=== PATIENT | female | born 1925 | race Caucasian/White ===

== ENCOUNTER 2017-03-03 15:48 | Emergency (ER) | payer OTHER ==
[2017-03-03 16:10] VITALS: BP 151/70; PULSE 89; TEMP 98; BMI 25.2
[2017-03-03] MEDS ORDERED: DIPHTH,PERTUSS(ACELL),TET 0.5 ML DISP.SYRIN IM ONE (16:46)
--- NOTE | 2017-03-03 16:46 | PDOC ---
History of Present Illness - General Chief Complaint: Injury Stated Complaint: FELL Time Seen by Provider: 03/03/17 16:21 Past History - Past Medical History Allergies/Adverse Reactions: Allergies Allergy/AdvReac Type Severity Reaction Status Date / Time aspirin Allergy Unknown Verified 03/03/17 16:11 codeine Allergy Unknown Verified 03/03/17 16:11 Penicillins Allergy Unknown Verified 03/03/17 16:11 Sulfa (Sulfonamide Allergy Unknown Verified 03/03/17 16:11 Antibiotics) Home Medications: Ambulatory Orders Acetaminophen 650 mg PO TID PRN 03/03/17 Amlodipine Besylate [Norvasc -] 5 mg PO DAILY 03/03/17 Benazepril HCl [Lotensin] 40 mg PO DAILY 03/03/17 Cholecalciferol (Vitamin D3) [Vitamin D3 -] 1,000 unit PO DAILY 03/03/17 Docusate Sodium [Colace] 100 mg PO DAILY PRN 03/03/17 Duloxetine HCl [Cymbalta -] 60 mg PO DAILY 03/03/17 Lidocaine 2% Viscous Oral [Xylocaine 2% Viscous Oral -] 15 ml PO Q4H PRN Multivitamins [Tab-A-Vit -] 1 tab PO DAILY 03/03/17 [place]-3S/Dha/Epa/Fish Oil [Fish Oil Dr 1,000 mg Softgel] 1 each PO BID 03/03/17 Propylene Glycol/Peg 400/Pf [Systane 0.3-0.4% Eye Drops] 1 each OP BID 03/03/17 Timolol 0.5% [Timoptic 0.5%] 1 drop OU BID 03/03/17 Cardiac Disorders: Yes (AORTIC VALVE STENOSIS) COPD: No Dementia: Yes HTN: Yes Hypercholesterolemia: Yes Psychiatric Problems: Yes - Suicide/Smoking/Psychosocial Hx Smoking History: Unknown if ever smoked Have you smoked in the past 12 months: No Information on smoking cessation initiated: No Hx Alcohol Use: No Drug/Substance Use Hx: No Substance Use Type: None *Physical Exam - Vital Signs Last Vital Signs Temp Pulse Resp BP Pulse Ox 98.0 F 89 16 151/70 95 03/03/17 15:55 03/03/17 15:55 03/03/17 15:55 03/03/17 15:55 03/03/17 15:55 Medical Decision Making - Medical Decision Making 03/03/17 17:09 Patient who tripped over a curb, striking her forehead and left cheek on the ground. No loss of consciousness. She is alert and complaining of mild pain in the left forehead. No other complaints. No other injuries including injuries to the head neck chest abdomen spine pelvis or extremities Physical exam: Alert no acute distress cooperative Afebrile, vital signs stable Head atraumatic. PERRLA 4 mm, fundi benign with sharp disc margins and good central venous pulsations Contusions and abrasions over the left forehead and left cheek. Minimal orbital and facial bone tenderness, no deformity. EOMs full without diplopia. Visual pérez intact. Conjunctivae and corneas clear. ENT clear Neck supple without bruit mass or nodes. No tenderness or deformity. Good range of motion without pain Chest clear, full breath sounds throughout bilaterally, no rib cage or chest wall tenderness or deformity CV regular without murmur rub or gallop Abdomen benign Spine and pelvis without tenderness or deformity Extremities without visible or palpable sign of trauma, full range of motion of the shoulders and hips without pain or limitation. Impression: Facial contusions, no sign of significant head injury or facial fracture Plan: Wounds cleaned and dressed. Continue ice. Wound care and head injury instructions. Recheck 24 hours primary physician. Return to ER if there are further symptoms. Fully ambulatory and in no significant pain or other distress upon discharge to her nursing facility to follow-up as suggested. *DC/Admit/Observation/Transfer Diagnosis at time of Disposition: Contusion of face Qualifiers: Encounter type: initial encounter Qualified Code(s): S00.83XA - Contusion of other part of head, initial encounter - Discharge Dispostion Disposition: HOME Condition at time of disposition: Stable Admit: No - Referrals Referrals: Tono Talamantes [Primary Care Provider] - 24 hours - Patient Instructions Printed Discharge Instructions: Contusion, DI for Closed Head Injury - Post Discharge Activity
== END 2017-03-03 18:55 | disposition home or self-care (01) ==
LOC: FER 15:48
PROC: 3E0234Z Introduction of Serum, Toxoid and Vaccine into Muscle, Percutaneous Approach (ICD-10-PCS; principal; 2017-03-03)
DX: S00.83XA Contusion of other part of head, initial encounter (principal); W18.39XA Other fall on same level, initial encounter; Y93.89 Activity, other specified; Y92.410 Unspecified street and highway as the place of occurrence of the external cause; F03.90 Unspecified dementia, unspecified severity, without behavioral disturbance, psychotic disturbance, mood disturbance, and anxiety; I10 Essential (primary) hypertension; E78.00 Pure hypercholesterolemia, unspecified; F99 Mental disorder, not otherwise specified
CPT/HCPCS: 90715; 99283-25

== ENCOUNTER 2017-08-27 16:53 | Observation (INO) | payer OTHER ==
--- NOTE | 2017-08-27 17:43 | PDOC ---
History of Present Illness - General Chief Complaint: Blood Pressure Problem Stated Complaint: Blood Pressure Problem Time Seen by Provider: 08/27/17 17:43 - History of Present Illness Initial Comments: 89 year old female presenting from [facility] with PMH of sinus bradycardia ( pacemaker considered but deferred), PVD, HLD, MDD, Aortic Valve Stenosis, and HTN presenting with SOB on exertion and lightheadedness for the past three days with elevated BP today. Patient states that she has been lightheaded while walking for the past three days. Today at her [place] her pressures were elevated to the 180s. Denies nausea, vomiting, diarrhea, constipation, fevers, chills, focal neuro deficit, ataxia, cough, chest pain, headache, or other symptoms. 08/27/17 19:45 Past History - Past Medical History Allergies/Adverse Reactions: Allergies Allergy/AdvReac Type Severity Reaction Status Date / Time aspirin Allergy Unknown Verified 08/27/17 17:42 codeine Allergy Unknown Verified 08/27/17 17:42 Penicillins Allergy Unknown Verified 08/27/17 17:42 Sulfa (Sulfonamide Allergy Unknown Verified 08/27/17 17:42 Antibiotics) Home Medications: Ambulatory Orders Acetaminophen 650 mg PO TID PRN 03/03/17 Amlodipine Besylate [Norvasc -] 5 mg PO DAILY 03/03/17 Benazepril HCl [Lotensin] 40 mg PO DAILY 03/03/17 Cholecalciferol (Vitamin D3) [Vitamin D3 -] 1,000 unit PO DAILY 03/03/17 Docusate Sodium [Colace] 100 mg PO DAILY PRN 03/03/17 Duloxetine HCl [Cymbalta -] 60 mg PO DAILY 03/03/17 Lidocaine 2% Viscous Oral [Xylocaine 2% Viscous Oral -] 15 ml PO Q4H PRN Multivitamins [Multivit (RH Formulary)] 1 tab PO DAILY 03/03/17 [place]-3S/Dha/Epa/Fish Oil [Fish Oil Dr 1,000 mg Softgel] 1 each PO BID 03/03/17 Propylene Glycol/Peg 400/Pf [Systane 0.3-0.4% Eye Drops] 1 each OP BID 03/03/17 Timolol 0.5% [Timoptic 0.5%] 1 drop OU BID 03/03/17 Nitrofurantoin Macrocrystal [Macrodantin -] 50 mg PO Q6HPO #28 capsule MDD 4 Cardiac Disorders: Yes (AORTIC VALVE STENOSIS,BRADYCARDIA) COPD: No Dementia: Yes HTN: Yes Hypercholesterolemia: Yes Psychiatric Problems: Yes (DEMENTIA,MDD) Other medical history: PVD,OSTEPOROSIS - Suicide/Smoking/Psychosocial Hx Smoking History: Former smoker Have you smoked in the past 12 months: No If you are a former smoker, when did you quit?: 50 YEARS AGO Information on smoking cessation initiated: No Hx Alcohol Use: No Drug/Substance Use Hx: No Substance Use Type: None Review of Systems - Review of Systems Constitutional: No: Chills, Diaphoresis, Fever, Loss of Appetite HEENTM: No: Blurred Vision, Tearing Respiratory: Yes: Shortness of Breath, SOB with Exertion. No: Cough, Orthopnea Cardiac (ROS): No: Chest Pain, Edema, Irregular Heart Rate ABD/GI: No: Constipated, Diarrhea, Nausea, Vomiting : No: Dysuria, Discharge, Frequency Musculoskeletal: No: Back Pain, Gout, Joint Pain Integumentary: No: Lesions, Lumps, Pallor Neurological: No: Headache, Numbness, Paresthesia, Tingling, Tremors Psychiatric: Yes: Depression Endocrine: No: Increased Thirst, Increased Urine Hematologic/Lymphatic: No: Anemia, Blood Clots, Easy Bleeding *Physical Exam - Vital Signs Last Vital Signs Temp Pulse Resp BP Pulse Ox 97.9 F 57 L 20 198/73 96 08/27/17 17:32 08/27/17 17:32 08/27/17 17:32 08/27/17 17:32 08/27/17 17:32 - Physical Exam General Appearance: Yes: Nourished, Appropriately Dressed. No: Apparent Distress HEENT: positive: EOMI, AMAURI, Normal ENT Inspection, Normal Voice Neck: positive: Trachea midline, Normal Thyroid, Supple. negative: Tender, Rigid Respiratory/Chest: positive: Lungs Clear, Normal Breath Sounds, Other (No respiratory distress whiel standing still but afte 10 steps she was visibly SOB) . negative: Chest Tender, Respiratory Distress, Accessory Muscle Use Cardiovascular: positive: Regular Rhythm, Regular Rate, Murmur (blowing 3/6 diastolic murmur heard loudest in the Tricuspid auscultatory region). negative : Tachycardia Gastrointestinal/Abdominal: positive: Normal Bowel Sounds, Flat, Soft. negative : Tender Musculoskeletal: positive: Normal Inspection. negative: Decreased Range of Motion Extremity: positive: Normal Capillary Refill, Normal Inspection, Normal Range of Motion. negative: Tender Integumentary: positive: Normal Color, Dry, Warm Neurologic: positive: backend tester II-XII NML intact, Fully Oriented (Knows location, name, month but was off on the year), Alert, Normal Mood/Affect, Normal Response , Motor Strength 07/05 ED Treatment Course - LABORATORY CBC & Chemistry Diagram: 08/28/17 06:30 08/28/17 06:30 Medical Decision Making - Medical Decision Making 89 year old female presenting for elevated blood pressure at [facility] and lightheadedness for the past few days. Furthermore, she has SOB on exertion while being examined in our ED although she is not admitting to this. She has known Aortic Stenosis and a significant diastolic murmur which is concerning for transition to aortic regurgitation. She is pending head CT and labs but will likely be admitted for further cardiac eval and hopefully an echo to evaluate valvular insufficiency. If she is now symptomatic with a known , she may be a candidate for TAVR. Patient signed out to Dr. Bean. 08/29/17 08:39 *DC/Admit/Observation/Transfer Diagnosis at time of Disposition: Hypertensive urgency, Near syncope Edema Qualifiers: Edema type: localized Qualified Code(s): R60.0 - Localized edema - Discharge Dispostion [facility]position[facility] Condition at time of disposition: Fair - Prescriptions - Referrals - Patient Instructions - Post Discharge Activity
[2017-08-27 18:59] LABS: INR 1.1 (0.82-1.09); PROTHROMBIN TIME (PATIENT) 12.4 SEC (9.7-13.0)
[2017-08-27 19:20] LABS: ALBUMIN 3.8 g/dl (3.4-5.0); ANION GAP 7 (8-16); BILIRUBIN,TOTAL 0.3 mg/dL (0.2-1.0); BLOOD UREA NITROGEN 14 mg/dL (7-18); CALCIUM 8.9 mg/dL (8.5-10.1); CHLORIDE 109 mmol/L (98-107); CO2 26 mmol/L (21-32); CREATININE 0.7 mg/dL (0.55-1.02); GLUCOSE,RANDOM 101 mg/dL (74-106); POTASSIUM 4.1 mmol/L (3.5-5.1); SGOT/AST 17 U/L (15-37); SGPT/ALT 25 U/L (12-78); SODIUM 142 mmol/L (136-145); TOT PROT 7.3 g/dl (6.4-8.2)
[2017-08-27 19:23] LABS: ALK PHOS 92 U/L (45-117)
[2017-08-27] MEDS ORDERED: amLODIPine BESYLATE 5 MG TABLET (FP) PO ONE (19:29)
[2017-08-27 19:54] LABS: URINE APPEARANCE CLEAR; URINE BILIRUBIN NEGATIVE (<2.0 mg/dL); URINE COLOR LTYELLOW; URINE GLUCOSE (UA) NEGATIVE (NEGATIVE); URINE KETONE NEGATIVE (NEGATIVE); URINE NITRITE NEGATIVE (NEGATIVE); URINE UROBILINOGEN NEGATIVE mg/dL (0.2-1.0)
[2017-08-27 19:54] LABS: BASO % 0.7 % (0-2.0); EOS % 2.7 % (0-4.5); HEMATOCRIT 38.7 % (32.4-45.2); LYMPH % 27.5 % (8-40); MCH 32.2 pg (25.7-33.7); MCHC 33.6 g/dl (32.0-36.0); MEAN CELL VOLUME 95.8 fl (80-96); MEAN PLT VOLUME 8.1 fl (7.5-11.1); MONO % 11.3 % (3.8-10.2); NEUT % 57.8 % (42.8-82.8); PLATELET COUNT 209 K/MM3 (134-434); RBC 4.04 M/mm3 (3.60-5.2); RDW 13.4 % (11.6-15.6); WHITE BLOOD COUNT 6.6 K/mm3 (4.0-10.0)
--- NOTE | 2017-08-27 19:54 | PDOC ---
Attending Attestation - HPI HPI: 08/27/17 20:08 The patient is a 89 year old female from [facility], with no significant past medical history sinus bradycardia (pacemaker considered but deferred), PVD, HLD, MDD, Aortic Valve Stenosis, and HTN, who presents to the ED complaining of shortness of breath on exertion for the past 3 days, accompanied with lightheadedness. She also notes that her blood pressure has been elevated. The patient denies chest pain, headache, fever, chills, nausea, vomiting, diarrhea and constipation. Denies dysuria, frequency, urgency and hematuria. Allergies: Aspirin, Codeine, Sulfa Past surgical history: None reported Social History: None reported - Physicial Exam PE: 08/27/17 20:09 Constitutional: Awake, alert, oriented. No acute distress. Head: Normocephalic. Atraumatic Eyes: PERRL. EOMI. Conjunctivae are not pale. ENT: Mucous membranes are moist and intact. Posterior pharynx without exudates or erythema. Uvula midline. Neck: Supple. Full ROM. No lymphadenopathy. Cardiovascular: Regular rate. Regular rhythm. S1, S2 regular. Distal pulses are 2+ and symmetric. Pulmonary/Chest: (+) Rales bilaterally at the bases. Inspiratory wheezing Abdominal: Soft and non-distended. There is no tenderness. No rebound, guarding or rigidity. No organomegaly. No palpable masses. Good bowel sounds. Back: No CVA tenderness. Musculoskeletal: (+) Trace edema at the ankles bilaterally. No cyanosis. No clubbing. Full range of motion in all extremities. Nocalf tenderness. Radial/ pedal pulses are intact and 2+ bilaterally Skin: Skin is warm and dry. No petechiae. No purpura. Neurological: Alert and oriented to person, place, and time. Cranial nerves II -XII are grossly intact. Normal speech. Strength is grossly symmetric. No sensory deficits. Psychiatric: Good eye contact. Normal interaction, affect and behavior. <Blaze Taylor - Last Filed: 08/27/17 21:00> - Resident Resident Name: Chuck Mcintosh - ED Attending Attestation I have performed the following: I have examined & evaluated the patient, The case was reviewed & discussed with the resident, I agree w/resident's findings & plan, Exceptions are as noted - Medical Decision Making 08/27/17 19:54 I, Dr. Aneta Bean, DO, attest that this document has been prepared under my direction and personally reviewed by me in its entirety. I further attest, that it accurately reflects all work, treatment, procedures and medical decision -making performed by me. 08/27/17 23:13 a/p: 89yo female with 3 days of feeling lightheaded and dizzy -elevated BP on exam rales b/l lungs soft end expiroatyr wheezing MIKE concern for new onset heart failure will send labs, ekg, cxr, head ct, ua, trop, bnp 08/27/17 23:13 BNP 450 elevated bp, will give lasix pt denies long head ct without acute findings ua +uti will start abx 08/27/17 23:[address] Swift - covering DR. Aguilar - will place in obs to [place] and consult to dr. gan cardiology 08/28/17 00:00 <Aneta Bean - Last Filed: 08/28/17 00:02> Discharge Disposition - Discharge Dispostion Decision to Admit order: Yes <Aneta Bean - Last Filed: 08/28/17 00:02> - Diagnosis Edema, Hypertensive urgency, Near syncope - Discharge Dispostion Condition at time of disposition: Fair Heart Score/ECG Review - ECG Intrepretation Comment:: 08/27/17 21:58 sinus ashely at 54, 1st degree av block, lvh, q waves inferior leads that are age indeterminate <Aneta Bean - Last Filed: 08/28/17 00:02>
[2017-08-27 19:55] LABS: URINE LEUK ESTERASE 2+ (NEGATIVE); URINE PROTEIN 2+ (NEGATIVE)
[2017-08-27] MEDS ORDERED: amLODIPine BESYLATE 5 MG TABLET (FP) ONE (20:43)
[2017-08-27] MEDS ORDERED: FUROSEMIDE 40 MG/4 ML INJECTABLE VIAL IVPUSH ONE (22:41)
[2017-08-27] MEDS ORDERED: FUROSEMIDE 40 MG/4 ML INJECTABLE VIAL ONE (22:49)
[2017-08-27] MEDS ORDERED: NITROFURANTOIN MACROCRYSTAL 50 MG CAPSULE (FP) PO SCH (23:15)
[2017-08-27] MEDS ORDERED: LIDOCAINE VISCOUS 2% ORAL/TOP 20 ML UNIT-DOSE CUP PO PRN (23:42)
[2017-08-27] MEDS ORDERED: DOCUSATE SODIUM 100 MG CAPSULE (FP) PO PRN (23:42)
[2017-08-28] MEDS ORDERED: NITROFURANTOIN MACROCRYSTAL 50 MG CAPSULE (FP) ONE (00:19)
[2017-08-28 02:21] VITALS: BMI 25.0
[2017-08-28 07:47] LABS: HEMATOCRIT 38.8 % (32.4-45.2); HEMOGLOBIN 13.4 GM/dL (10.7-15.3); MCH 32.8 pg (25.7-33.7); MCHC 34.4 g/dl (32.0-36.0); MEAN CELL VOLUME 95.4 fl (80-96); PLATELET COUNT 204 K/MM3 (134-434); RBC 4.07 M/mm3 (3.60-5.2); RDW 13.1 % (11.6-15.6); WHITE BLOOD COUNT 8.7 K/mm3 (4.0-10.0)
[2017-08-28 09:05] LABS: BLOOD UREA NITROGEN 12 mg/dL (7-18); CHLORIDE 105 mmol/L (98-107); CREATININE 0.7 mg/dL (0.55-1.02); GLUCOSE,RANDOM 106 mg/dL (74-106); POTASSIUM 4.1 mmol/L (3.5-5.1); SODIUM 142 mmol/L (136-145)
[2017-08-28 09:17] LABS: ANION GAP 8 (8-16); CO2 29 mmol/L (21-32)
[2017-08-28] MEDS ORDERED: TIMOLOL 0.5% OPHTHALMIC SOL 5 ML BOTTLE OU SCH (10:00)
[2017-08-28] MEDS ORDERED: LISINOPRIL 20 MG TABLET (FP) PO SCH (10:00)
[2017-08-28] MEDS ORDERED: amLODIPine BESYLATE 5 MG TABLET (FP) PO SCH (10:00)
[2017-08-28] MEDS ORDERED: CHOLECALCIFEROL (VITAMIN D3) 1,000 UNIT TABLET (FP) PO SCH (10:00)
[2017-08-28] MEDS ORDERED: DULoxetine HCL 30 MG CAPSULE.DR (FP) PO SCH (10:00)
[2017-08-28] MEDS ORDERED: MULTIVITAMINS (DAILY MVI) TABLET (FP) PO SCH (10:00)
--- NOTE | 2017-08-28 11:21 | CON.CARD ---
Cardiology Consult (text) - Consultation Consultation Note: cc: high bp hpi: 89 f hx hld, as, copd, htn sent from me with htn. Pt says at me they checked her bp and was elevated so sent to ER. In ER bp very high, now improved. Charts mentioned dizziness but pt denies. No cp, sob, palps, dizzy, loc, pnd, orthopnea, le edema. pmh: per hpi psh: nc social: no tob fam: no premature cad ros: per hpi; no nvd, long, vision changes, gib hematuria dysuria muscle pain meds: Ambulatory Orders Acetaminophen 650 mg PO TID PRN 03/03/17 Amlodipine Besylate [Norvasc -] 5 mg PO DAILY 03/03/17 Benazepril HCl [Lotensin] 40 mg PO DAILY 03/03/17 Cholecalciferol (Vitamin D3) [Vitamin D3 -] 1,000 unit PO DAILY 03/03/17 Docusate Sodium [Colace] 100 mg PO DAILY PRN 03/03/17 Duloxetine HCl [Cymbalta -] 60 mg PO DAILY 03/03/17 Lidocaine 2% Viscous Oral [Xylocaine 2% Viscous Oral -] 15 ml PO Q4H PRN Multivitamins [Tab-A-Vit -] 1 tab PO DAILY 03/03/17 [place]-3S/Dha/Epa/Fish Oil [Fish Oil Dr 1,000 mg Softgel] 1 each PO BID 03/03/17 Propylene Glycol/Peg 400/Pf [Systane 0.3-0.4% Eye Drops] 1 each OP BID 03/03/17 Timolol 0.5% [Timoptic 0.5%] 1 drop OU BID 03/03/17 pe: Vital Signs Period Temp Pulse Resp BP Sys/Hughes Pulse Ox Last 24 Hr 97.7 F-98.7 F 51-65 17-22 143-198/39-84 93-97 nad no jvd rrr s1s2 no mrg cta bl nl eff aaox3 no le e/c/c abd nt nd pos bs no jaundice diaphoresis pos dp pt no carotid bruits tele: sr/sb ecg: sb 54, nl intervals, no ischemic changes ct chest: no chf, +chronic lung dz a/p: 89 f hx hld, as, copd, htn sent from me with htn. htn: -improved this AM -cont lisinopril , norvasc, can increase norvasc to 10 mg qd prn -echo pending hld: -stable as: -no signs chf -check echo to see severity dizzy: -pt denies, but poor historian -currently feeling well -tele benign -echo pending -possibly from very elevated bp she had initially if echo benign then ok for dc from cardiac pov
--- NOTE | 2017-08-28 13:43 | HP ---
Admitting History and Physical - Primary Care Physician PCP: Raudel Swift - Admission Chief Complaint: Dizziness, SOB History of Present Illness: Pt is a resident of [facility], yesterday she was c/o dizziness and MIKE; pt was referred to ER were was considered to have new onset CHF ( received Lasix), possible UTI; pt was admitted to Telemetry. History Source: Patient, Medical Record - Past Medical History [employer]: Yes: Dementia Cardiovascular: Yes: Aortic Stenosis, HTN, Hyperlipdemia, Other (Bradycardia PVD ) - Smoking History Smoking history: Former smoker Have you smoked in the past 12 months: No If you are a former smoker, when did you quit?: 50 YEARS AGO - Alcohol/Substance Use Hx Alcohol Use: No Home Medications - Allergies Allergies/Adverse Reactions: Allergies Allergy/AdvReac Type Severity Reaction Status Date / Time aspirin Allergy Unknown Verified 08/27/17 17:42 codeine Allergy Unknown Verified 08/27/17 17:42 Penicillins Allergy Unknown Verified 08/27/17 17:42 Sulfa (Sulfonamide Allergy Unknown Verified 08/27/17 17:42 Antibiotics) - Home Medications Home Medications: Ambulatory Orders Acetaminophen 650 mg PO TID PRN 03/03/17 Amlodipine Besylate [Norvasc -] 5 mg PO DAILY 03/03/17 Benazepril HCl [Lotensin] 40 mg PO DAILY 03/03/17 Cholecalciferol (Vitamin D3) [Vitamin D3 -] 1,000 unit PO DAILY 03/03/17 Docusate Sodium [Colace] 100 mg PO DAILY PRN 03/03/17 Duloxetine HCl [Cymbalta -] 60 mg PO DAILY 03/03/17 Lidocaine 2% Viscous Oral [Xylocaine 2% Viscous Oral -] 15 ml PO Q4H PRN Multivitamins [Tab-A-Vit -] 1 tab PO DAILY 03/03/17 [place]-3S/Dha/Epa/Fish Oil [Fish Oil Dr 1,000 mg Softgel] 1 each PO BID 03/03/17 Propylene Glycol/Peg 400/Pf [Systane 0.3-0.4% Eye Drops] 1 each OP BID 03/03/17 Timolol 0.5% [Timoptic 0.5%] 1 drop OU BID 03/03/17 Review of Systems - Review of Systems Constitutional: denies: Chills, Fever Eyes: denies: Blind Spots, Blurred Vision HENT: denies: Ear Discharge, Ear Pain, Nasal Congestion, Throat Pain Neck: denies: Stiffness, Tenderness Cardiovascular: reports: Edema (better today), Shortness of Breath. denies: Chest Pain, Palpitations Respiratory: denies: Cough, SOB on Exertion, Wheezing Gastrointestinal: denies: Abdominal Pain, Diarrhea, Nausea, Vomiting Genitourinary: denies: Burning, Discharge Musculoskeletal: denies: Back Pain, Extremity Pain, Joint Swelling Integumentary: denies: Blister, Eczema, Rash Neurological: denies: Change in LOC, Change in Speech, Weakness Endocrine: denies: Excessive Sweating, Intolerance to Cold Hematology/Lymphatic: denies: Easily Bruised, Excessive Bleeding Psychiatric: denies: Anxiety, Depression Physical Examination Vital Signs: Vital Signs Temperature 97.7 F 08/28/17 11:19 Pulse Rate 59 L 08/28/17 11:19 Respiratory Rate 20 08/28/17 11:19 Blood Pressure 160/61 08/28/17 11:19 O2 Sat by Pulse Oximetry (%) 95 08/28/17 09:00 Constitutional: Yes: No Distress, Calm Eyes: Yes: Conjunctiva Clear, EOM Intact HENT: No: Pharyngeal Erythema, Rhinnorhea Neck: Yes: Trachea Midline. No: Lymphadenopathy Cardiovascular: Yes: Regular Rate and Rhythm, Murmur, S1, S2 Respiratory: Yes: Regular, CTA Bilaterally. No: Rales Gastrointestinal: Yes: Normal Bowel Sounds, Soft. No: Tenderness ...Rectal Exam: Yes: Deferred Renal/: No: CVA Tenderness - Left, CVA Tenderness - Right Breast(s): Yes: Other (deferred) Musculoskeletal: No: Back Pain, Joint Swelling Extremities: No: Cold, Cool Edema: No Integumentary: No: Bruising, Rash Neurological: Yes: Alert, Oriented (2-3), Other (motor and sensory examination is symmetric in UE/ LE/ face) Labs: CBC, BMP 08/28/17 06:30 08/28/17 06:30 Imaging - Results Chest X-ray: Report Reviewed Cat Scan: Report Reviewed Problem List - Problems (1) Dizziness Code(s): R42 - DIZZINESS AND GIDDINESS (2) CHF (congestive heart failure) Code(s): I50.9 - HEART FAILURE, UNSPECIFIED (3) Aortic stenosis Code(s): I35.0 - NONRHEUMATIC AORTIC (VALVE) STENOSIS (4) HTN (hypertension) Code(s): I10 - ESSENTIAL (PRIMARY) HYPERTENSION (5) Bradycardia Code(s): R00.1 - BRADYCARDIA, UNSPECIFIED Assessment/Plan Admit to Telemetry Cardio Consult Echo; to f/u report ( to R/O CHF). AM labs
--- NOTE | 2017-08-28 15:48 | PN ---
Progress Note (short form) - Note Progress Note: Cardio consult was noted. Echo report was noted. To DC pt back to [place]. Problem List - Problems (1) Dizziness Code(s): R42 - DIZZINESS AND GIDDINESS (2) CHF (congestive heart failure) Code(s): I50.9 - HEART FAILURE, UNSPECIFIED (3) Aortic stenosis Code(s): I35.0 - NONRHEUMATIC AORTIC (VALVE) STENOSIS (4) HTN (hypertension) Code(s): I10 - ESSENTIAL (PRIMARY) HYPERTENSION (5) Bradycardia Code(s): R00.1 - BRADYCARDIA, UNSPECIFIED
--- NOTE | 2017-08-28 16:00 | DS ---
Physical Examination Vital Signs: Vital Signs Temperature 97.9 F 08/28/17 13:54 Pulse Rate 57 L 08/28/17 13:54 Respiratory Rate 20 08/28/17 13:54 Blood Pressure 151/54 08/28/17 13:54 O2 Sat by Pulse Oximetry (%) 95 08/28/17 09:00 Findings/Remarks: see H & P for ROS, PE Labs: CBC, BMP 08/28/17 06:30 08/28/17 06:30 Discharge Summary Reason For Visit: ELEVATED BLOOD PRESSURE Current Active Problems Aortic stenosis (Acute) Bradycardia (Acute) CHF (congestive heart failure) (Acute) Dizziness (Acute) Edema (Acute) HTN (hypertension) (Acute) Hypertensive urgency (Acute) Near syncope (Acute) Procedures: Principal: CXR. Chest CT scan. ECHO Hospital Course: Pt was transferred from [facility] to ER for dizziness and MIKE.; pt had CXR (? LLI), Chest CT scan (+ for large hiatal hernia and LL atelectasis, no infiltrate); in ER was felt that pt is congested and received IV Lasix; she was also found to have UTI (by UA; UCX is pending) and given Macrobid; pt was admitted to Telemetry. Pt had serial CE (negative). She had ECHO ( normal EF). Pt was seen by Cardio (Dr. Colby) and clear for DC. Pt to be DC'ed back to [place]. Condition: Fair - Instructions Diet, Activity, Other Instructions: Resume Diet Referrals: Tono Talamantes [Primary Care Provider] - Disposition: LONG-TERM FACILITY - Home Medications Comprehensive Discharge Medication List: Ambulatory Orders
--- NOTE | 2017-08-28 16:20 | EKG ---
Test Reason : Blood Pressure : / mmHG Vent. Rate : 054 BPM Atrial Rate : 054 BPM P-R Int : 224 ms QRS Dur : 106 ms QT Int : 516 ms P-R-T Axes : 034 -05 075 degrees QTc Int : 489 ms SINUS BRADYCARDIA WITH SINUS ARRHYTHMIA WITH 1ST DEGREE A-V BLOCK LEFT VENTRICULAR HYPERTROPHY WITH REPOLARIZATION ABNORMALITY ABNORMAL ECG NO PREVIOUS ECGS AVAILABLE Confirmed by EDITH MOTA MD ([id number]) on 08/28/2017 4:19:52 PM Referred By: Confirmed By:EDITH MOTA MD
[2017-08-28] MEDS ORDERED: NITROFURANTOIN MACROCRYSTAL 50 MG CAPSULE (FP) PO SCH (18:00)
[2017-08-28] MEDS ORDERED: amLODIPine BESYLATE 5 MG TABLET (FP) PO ONE (20:45)
[2017-08-28 21:07] VITALS: BP 186/75; PULSE 68; TEMP 98.2
== END 2017-08-28 21:14 ==
LOC: JER 16:53 → JERBED 23:09 → INTOOBSV 23:39 → OBSVTOIN 23:39 → J4W 08-28 01:54
PROVIDERS: ADMIT Internal Medicine; ATTEND Specialist
PROC: 3E033GC Introduction of Other Therapeutic Substance into Peripheral Vein, Percutaneous Approach (ICD-10-PCS; principal; 2017-08-27)
DX: R55 Syncope and collapse (principal); R60.9 Edema, unspecified; I10 Essential (primary) hypertension; E78.5 Hyperlipidemia, unspecified; R00.1 Bradycardia, unspecified; I73.9 Peripheral vascular disease, unspecified; F33.9 Major depressive disorder, recurrent, unspecified; F03.90 Unspecified dementia, unspecified severity, without behavioral disturbance, psychotic disturbance, mood disturbance, and anxiety; I35.0 Nonrheumatic aortic (valve) stenosis; R42 Dizziness and giddiness; I50.9 Heart failure, unspecified; Z87.891 Personal history of nicotine dependence; Z88.5 Allergy status to narcotic agent; Z88.6 Allergy status to analgesic agent; Z88.0 Allergy status to penicillin; Z88.2 Allergy status to sulfonamides
CPT/HCPCS: 36415; 70450-TC; 71045-TC-FY; 71250-TC; 80048; 80053; 81003; 81015; 82550; 83880; 84484; 85025; 85027; 85610; 87086; 93005; 93010; 93306-TC; 96374; 97116-GP; 97161-GP; 99285-25; G0378